=== PATIENT | female | born 1935 | race Caucasian/White ===

== ENCOUNTER → 2019-10-26 | Outpatient (CLI) | payer MEDICARE ==
[~2019-10-26] MED LIST: GABA-586 PO; LEVO75TA5 PO; TELM40TA PO
== END ==
LOC: LAB 10:05
PROVIDERS: ATTEND Registered Nurse
DX: Z01.812 Encounter for preprocedural laboratory examination (principal); Z20.828 Contact with and (suspected) exposure to other viral communicable diseases
CPT/HCPCS: U0003-CS

== ENCOUNTER → 2019-11-30 | Outpatient (CLI) | payer MEDICARE | LOC: LAB 12:45 | PROVIDERS: ATTEND Nurse Anesthetist, Certified Registered | DX: Z01.812 Encounter for preprocedural laboratory examination (principal); Z86.010 Personal history of colon polyps; Z20.828 Contact with and (suspected) exposure to other viral communicable diseases | CPT/HCPCS: U0003-CS ==

== ENCOUNTER → 2019-12-03 | Day surgery (SDC) | payer MEDICARE ==
[~2019-12-03] MED LIST changes: +IV RINGERS SOLUTION,LACTATED 1,000 ML IV SCH; +PROPOFOL 10,000 MCG/ML (20ML) VIAL IV ONE
[2019-12-03 12:50] VITALS: BP 171/98
== END | disposition home or self-care (01) ==
LOC: SURG 10:03
PROVIDERS: ATTEND Internal Medicine Gastroenterology
DX: R19.4 Change in bowel habit (principal); K64.8 Other hemorrhoids; K63.89 Other specified diseases of intestine; Z88.0 Allergy status to penicillin; Z88.1 Allergy status to other antibiotic agents; Z88.8 Allergy status to other drugs, medicaments and biological substances; Z91.041 Radiographic dye allergy status; Z88.2 Allergy status to sulfonamides; Z79.899 Other long term (current) drug therapy; Z86.010 Personal history of colon polyps
CPT/HCPCS: 45378; J2704

== ENCOUNTER → 2020-01-25 | Outpatient (CLI) | payer MEDICARE ==
[2019-12-03 12:50] VITALS: BP 171/98
[~2020-01-25] MED LIST changes: -IV RINGERS SOLUTION,LACTATED 1,000 ML IV SCH; -PROPOFOL 10,000 MCG/ML (20ML) VIAL IV ONE; +vitamin d3
== END ==
LOC: LAB 14:52
PROVIDERS: ATTEND Nurse Anesthetist, Certified Registered
DX: Z01.818 Encounter for other preprocedural examination (principal); K92.1 Melena; Z20.828 Contact with and (suspected) exposure to other viral communicable diseases
CPT/HCPCS: U0003

== ENCOUNTER → 2020-01-28 | Day surgery (SDC) | payer MEDICARE ==
[~2020-01-28] MED LIST changes: +IPRATRPIUM/ALBUTEROL 0.5/2.5MG 3 ML NEBU. NEB PRN; +IV RINGERS SOLUTION,LACTATED 1,000 ML IV SCH; +LIDOCAINE 2% PF 5 ML VIAL. ONE; +MIDAZOLAM HCL PF 2 MG/2 ML VIAL. IV ONE; +ONDANSETRON PF 4 MG/2 ML VIAL. IV PRN; +PROPOFOL 10,000 MCG/ML (20ML) VIAL IV ONE
[2020-01-28 10:54] VITALS: BP 131/91
--- NOTE | 2020-02-01 22:06 | PATHOLOGY ---
[facility] Accession Number: [id number] . 01 Material submitted: . stomach - ANTRUM GASTRITIS . 01 Clinician provided ICD-10: y . 02 Diagnosis: "Antrum gastritis", biopsy: - Gastric antral type mucosa with mild reactive changes and mild predominantly chronic inflammation. - Negative H. pylori immunohistochemical stain (block A1); control reacted appropriately. (CLW:signal supervisor; 02/01/2020) [facility] 02/01/2020 1102 Local . 02 Electronically signed: . Jeny Rosenthal MD, Pathologist NPI- [id number] . 01 Gross description: . The specimen is received in formalin, labeled "Norma Medina, antrum gastritis". Received are two segments of pale fry soft tissue ranging in size from 0.3 to 0.5 cm in maximum dimensions. The specimen is submitted entirely in cassette A1. ([facility]; 01/31/2020) QA/[facility] 01/31/2020 1610 Local . 02 Pathologist provided ICD-10: K29.50 . 02 CPT . 667948, [id number] Specimen Comment: A courtesy copy of this report has been sent to [phone], [phone] Specimen Comment: [phone] Specimen Comment: Report sent to / DR CLAYTON Performed at: 01 [facility] [address], [place] [id number] MD Marques Kearney MD Phone: [phone] Performed at: 02 [facility] [address] [place], [place] [id number] MD Tong Tong MD Phone: [phone]
== END | disposition home or self-care (01) ==
LOC: SURG 08:56
PROVIDERS: ATTEND Internal Medicine Gastroenterology
DX: K92.1 Melena (principal); K21.00 Gastro-esophageal reflux disease with esophagitis, without bleeding; K44.9 Diaphragmatic hernia without obstruction or gangrene; K25.9 Gastric ulcer, unspecified as acute or chronic, without hemorrhage or perforation; K29.50 Unspecified chronic gastritis without bleeding; K63.89 Other specified diseases of intestine; Z88.0 Allergy status to penicillin; Z88.2 Allergy status to sulfonamides; Z91.041 Radiographic dye allergy status; Z88.8 Allergy status to other drugs, medicaments and biological substances; Z79.899 Other long term (current) drug therapy; Z88.1 Allergy status to other antibiotic agents; Z86.010 Personal history of colon polyps
CPT/HCPCS: 43239; 88305; 88342; J2001; J2704; J7120